=== PATIENT | female | born 1990 | race African-American/Black ===

== ENCOUNTER 2021-01-25 23:22 | Inpatient (IN) | payer MEDICAID ==
[~2021-01-25] VITALS: Ht 170.2 cm; Wt 92.6 kg
[2021-01-26 00:29] VITALS: BP 137/86
[2021-01-26] MEDS ORDERED: DOCUSATE 100 MG CAPSULE PO PRN (01:00)
[2021-01-26] MEDS ORDERED: POLYETHYLENE GLYCOL 17 GM PACKET PO PRN (01:00)
[2021-01-26] MEDS ORDERED: ONDANSETRON ODT 4 MG PO PRN (01:00)
[2021-01-26] MEDS ORDERED: BISACODYL 10 MG SUPP PR PRN (01:00)
[2021-01-26 07:38] VITALS: BP 112/72
[2021-01-26 07:59] LABS: CHOL/HDL RATIO 3.8; FREE T4 (FREE THYROXINE) 0.97 ng/dL (0.76-1.46); LDL/HDL RATIO 2.2 (0.5-3.0)
[2021-01-26] MEDS ORDERED: OXYcodone IR 5MG TABLET ONE (10:13)
[2021-01-26] MEDS: OXYcodone IR 5MG TABLET PO PRN ×3 (10:18→18:55)
[2021-01-26] MEDS: IBUPROFEN 200 MG TABLET PO PRN ×2 (10:19→18:55)
[2021-01-26] MEDS: DIPHENHYDRAMINE 25 MG CAPSULE PO PRN ×2 (13:08→18:55)
[2021-01-26 13:09] LABS: MICROSCOPIC INDICATED
[2021-01-26] MEDS: ENOXAPARIN 30 MG/0.3 ML SQ SCH (13:59)
[2021-01-26] MEDS: ACETAMINOPHEN 325 MG TABLET PO PRN (15:31)
[2021-01-26 19:17] VITALS: BP 116/74
[2021-01-27] MEDS: ENOXAPARIN 30 MG/0.3 ML SQ SCH ×3 (01:34→13:43)
[2021-01-27] MEDS: OXYcodone IR 5MG TABLET PO PRN ×4 (03:52→21:38)
[2021-01-27 07:33] VITALS: BP 106/70
[2021-01-27] MEDS: ACETAMINOPHEN 325 MG TABLET PO PRN ×2 (08:22→19:49)
[2021-01-27 19:51] VITALS: BP 109/75
[2021-01-28] MEDS: ENOXAPARIN 30 MG/0.3 ML SQ SCH ×2 (01:27→13:00)
[2021-01-28 08:03] VITALS: BP 113/71
[2021-01-28] MEDS: OXYcodone IR 5MG TABLET PO PRN (08:50)
== END 2021-01-28 14:30 | disposition left against medical advice (07) | DRG 754 ==
LOC: 3E 01-26 00:24
PROVIDERS: ADMIT Psychiatry & Neurology Psychosomatic Medicine; ATTEND Psychiatry & Neurology Psychosomatic Medicine
DX: F32.9 Major depressive disorder, single episode, unspecified (principal); R45.851 Suicidal ideations; G89.29 Other chronic pain; N85.8 Other specified noninflammatory disorders of uterus; M25.561 Pain in right knee; M25.562 Pain in left knee; R40.2430 Glasgow coma scale score 3-8, unspecified time; Z80.0 Family history of malignant neoplasm of digestive organs; Z90.710 Acquired absence of both cervix and uterus; Z88.5 Allergy status to narcotic agent; Z90.49 Acquired absence of other specified parts of digestive tract
CPT/HCPCS: 36415; 71045; 80061; 81001; 82607; 84439; 84443; 87086; 93005; J1650; Q0163

== ENCOUNTER 2021-03-01 13:11 | Emergency (ER) | payer MEDICAID ==
[~2021-03-01] VITALS: Ht 170.2 cm; Wt 94.0 kg
[2021-03-01] MEDS ORDERED: BENZONATATE 100 MG CAPSULE ONE (13:41)
[2021-03-01] MEDS ORDERED: ACETAMINOPHEN 500 MG TABLET ONE (13:41)
[2021-03-01] MEDS ORDERED: KETOROLAC 30 MG/1 ML ONE (13:41)
[2021-03-01] MEDS ORDERED: ONDANSETRON 2MG/ML, 2ML ONE (13:41)
[2021-03-01] MEDS ORDERED: ONDANSETRON 2MG/ML, 2ML IVPush ONE (14:00)
[2021-03-01] MEDS ORDERED: KETOROLAC 30 MG/1 ML IVPush ONE (14:00)
[2021-03-01] MEDS ORDERED: SODIUM CHLORIDE FLUSH 10ML SYR IVF ONE (14:00)
[2021-03-01] MEDS ORDERED: SODIUM CHLORIDE 0.9% 1,000ML IVBOLUS ONE (14:00)
[2021-03-01] MEDS ORDERED: BENZONATATE 100 MG CAPSULE PO ONE (14:00)
[2021-03-01] MEDS ORDERED: ACETAMINOPHEN 500 MG TABLET PO ONE (14:00)
--- NOTE | 2021-03-01 14:04 | NUR ---
PIV PLACED BY MANAGER LATIN, LABS DRAWN THRU PIV AND SENT TO LAB. MEDS ADMIN PER NOV. IVF RUNNING. PT CONNECTED TO MONITORING. CALL LIGHT IN REACH.
[2021-03-01 14:06] LABS: BASOPHILS % (AUTO) 0 % (0-1); EOSINOPHILS % (AUTO) 0 % (1-7); LYMPHOCYTES % (AUTO) 41 % (22-44); MEAN CORPUSCULAR HEMOGLOBIN 30.8 pg (27.0-34.8); MEAN PLATELET VOLUME 8.9 fL (7.4-10.4); MONOCYTES % (AUTO) 8 % (2-9); NEUTROPHILS % (AUTO) 51 % (42-75); PLATELET COUNT 216 x10^3/uL (130-400); RED BLOOD COUNT 4.61 x10^6/uL (3.82-5.3); RED CELL DISTRIBUTION WIDTH 14.1 % (9.6-15.2)
--- NOTE | 2021-03-01 14:11 | NUR ---
PT AWARE OF NEED FOR URINE. PT STATES SHE WILL ATTEMPT AFTER IVF.
[2021-03-01 14:16] LABS: ALANINE AMINOTRANSFERASE 30 U/L (12-78); ALBUMIN 3.8 g/dL (3.4-5.0); ANION GAP 6 mmol/L (5-15); CALCIUM 8.8 mg/dL (8.5-10.1); CHLORIDE 106 mmol/L (98-107); CREATININE 0.69 mg/dL (0.55-1.02)
[2021-03-01 14:18] LABS: ALKALINE PHOSPHATASE 60 U/L (45-117); BILIRUBIN,TOTAL 0.4 mg/dL (0.2-1.0); TOTAL PROTEIN 8.7 g/dL (6.4-8.2)
--- NOTE | 2021-03-01 14:30 | NUR ---
PT AMBULATED TO RESTROOM WITH STEADY GAIT TO PROVIDE URINE SAMPLE. UA COLLECTED AND SENT TO LAB.
--- NOTE | 2021-03-01 14:46 | NUR ---
PT STATES BACK PAIN IS BETTER AFTER MEDS.
[2021-03-01 14:59] LABS: MICROSCOPIC INDICATED
[2021-03-01 15:16] VITALS: BP 128/75
--- NOTE | 2021-03-01 16:05 | NUR ---
ALL RESULTS ARE BACK AT THIS TIME. CHART UP FOR RECHECK.
== END 2021-03-01 17:22 | disposition home or self-care (01) ==
LOC: ED 14:08
DX: U07.1 COVID-19 (principal); K52.9 Noninfective gastroenteritis and colitis, unspecified; R05 Cough; M79.10 Myalgia, unspecified site; R94.31 Abnormal electrocardiogram [ECG] [EKG]; Z90.710 Acquired absence of both cervix and uterus
CPT/HCPCS: 36415; 71045; 80053; 81001; 83605; 84145; 85025; 87086; 93005; 96361; 96374; 96375; 99285; J1885; J2405; J7030